=== PATIENT | female | born 1975 | race Caucasian/White ===

== ENCOUNTER 2021-12-15 16:27 | Emergency (ER) | payer BC, SELFPAY ==
[2021-12-15 16:52] VITALS: BP 152/96; PULSE 95; RESP 19; TEMP 36.5; O2SAT 97; BMI 38.0
--- NOTE | 2021-12-15 16:52 | XR_ITS ---
PROCEDURE INFORMATION: Exam: XR Left Knee Exam date and time: 12/15/2021 4:52 PM Age: 46 years old Clinical indication: Injury or trauma; Fall; Blunt trauma; Knee; Left; Additional info: Fall, anterior pain TECHNIQUE: Imaging protocol: XR Left knee. Views: 3 views. COMPARISON: No relevant prior studies available. FINDINGS: Bones/joints: No acute fracture or dislocation. Mild narrowing of the patellofemoral compartment. Mild tricompartmental joint space narrowing and marginal spurring. Normal bone mineralization. Soft tissues: Suprapatellar effusion. IMPRESSION: 1. Suprapatellar effusion. 2. Tricompartmental degenerative changes.
--- NOTE | 2021-12-15 17:06 | HMH.EDUTC ---
[facility] [place]ression: Knee effusion Qualifiers: Laterality: left Qualified Code(s): M25.462 - Effusion, left knee Disposition: Home, Self-Care Condition on Discharge: Good Instructions: How to Use a Knee Immobilizer, Ibuprofen Additional Instructions: Follow up with your Family Doctor if no improvement for further testing like Ct Scan or MRI of knee Return if needed Straight to ER if any life threatening symptoms *weight bearing as tolerated use walker to help you get around *RICE, Rest the extremity, Ice 15-20 minutes 3-4 times daily, Compress- wear the matt wrap as discussed as much as possible to help reduce swelling and pain, Elevate the extremity when at rest *Matt wrap/Knee immobilizer is for support and help control swelling, use it except in the shower. Be sure that is not to tight but not to loose either *Elevate when resting *Ibuprofen every 6-8 hours as needed for pain an inflammation. If need something more can take Tylenol in between doses of Ibuprofen to help Immediately follow up with your family doctor for new or worsening of symptoms, or no noticeable improvement over the next 3-5 days Prescriptions: Ibuprofen [Ibuprofen 800mg Tablet] 800 mg PO TIDP PRN #20 tab PRN Reason: Moderate Pain Transmission Status: Received by [id number] Referrals: Gauri Lewis [Primary Care Provider] - As needed Donald Cano MD [Staff Physician] - (call office for appointment) Time of Disposition: 17:57 Medical Decision Making - Winston Inquiry Pt receiving controlled substance: No Winston was queried for this patient: No Vital Signs: 12/15/21 16:52 12/15/21 18:10 Temperature 97.7 F 97.7 F Temperature Source Oral Pulse Rate 95 H Pulse Rate [Right Brachial] 95 H Respiratory Rate 19 19 Blood Pressure 152/96 H Blood Pressure [Right Arm] 152/96 H Blood Pressure Mean [Right Arm] 114 Blood Pressure Source [Right Arm] Automatic Cuff Blood Pressure Position [Right Arm] Sitting 02 Sat by Pulse Oximetry 97 - Radiology Data #1 Image(s): Knee Image Reviewed: Yes I have reviewed radiologist's interpretation IMPRESSION: 1. Suprapatellar effusion. 2. Tricompartmental degenerative changes. [facility] [place] - General Stated complaint: O/A 4 weeks L leg pain from fall, limited ROM Time Seen by Provider: 12/15/21 17:06 Description of Symptoms (Recalled from Triage Doc. by RN): Pt states she was walking in [employer] parking lot a month ago when she slipped and fell in the ice causing her to land on her left knee. States it had started feeling better up until last night. HEENT Symptoms (Recalled from RN notes): No Resp Symptoms (Recalled from RN notes): No Skin Symptoms (Recalled from RN notes): No MS Symptoms (Recalled from RN notes): Yes Functional Status (Recalled from RN notes): wnl - History of Present Illness Provider Complaint: Patient states that she fell on ice in the [employer] parking lot about 4-6wks ago and landed on her left knee States that it has been hurting on and off but was feeling better until last night States that she started having pain in her knee again and hurts on the side when she bends it or walks on it Denies new injury - Related Data Previous Rx's Medication Instructions Recorded Ibuprofen [Ibuprofen 800mg 800 mg PO TIDP PRN #20 tab 12/15/21 Tablet] Allergies Allergy/AdvReac Type Severity Reaction Status Date / Time SULFA (sulfonamide) Allergy Unknown Uncoded 10/09/17 14:24 - Worker's Comp Is this a Worker's Comp case?: No [facility] History - Hepatitis A Screen Drug use history?: No High risk sexual behaviors?: No History of sexually transmitted infection?: No Currently employed?: No Childcare worker?: No Do you have indoor plumbing?: Yes Do you have electricity?: Yes Attestation statement:: This patient has been screened for Hepatitis A risk factors. I have reviewed the patient's past medical history: Yes - Social
[2021-12-15 18:10] VITALS: BP 152/96; PULSE 95; RESP 19; TEMP 36.5; O2SAT 97
== END 2021-12-15 18:10 | disposition home or self-care (01) ==
PROVIDERS: Emergency Provider Nurse Practitioner; PCP Physician Assistant
DX: M25.462 Effusion, left knee (principal)
CPT/HCPCS: 73562; 99202; G0463

== ENCOUNTER → 2022-01-03 13:02 | Outpatient (CLI) | payer BC, SELFPAY ==
--- NOTE | 2022-01-03 13:10 | XR_ITS ---
FINAL REPORT CLINICAL HISTORY: 4 view wb; knee pain; obesity COMPARISON: December 15, 2021 FINDINGS: LEFT KNEE 4 weight-bearing views were obtained. There is no acute fracture or dislocation. There are mild and moderate degenerative changes which are greatest involving the patellofemoral compartment. There is mild lateral patellar subluxation. There is a partially improved joint effusion. IMPRESSION: Mild and moderate degenerative change. Mild lateral patellar subluxation. Partially improved joint effusion. Reviewed, Interpreted and Dictated by Kory Hui III, MD Transcribed by Lisa Gerber Authenticated by Kory Hui III, MD on 01/03/2022 03:22:43 PM [facility]
== END ==
PROVIDERS: PCP Nurse Practitioner Family; Visit Provider Orthopaedic Surgery
DX: M25.462 Effusion, left knee (principal)
CPT/HCPCS: 73564

== ENCOUNTER → 2022-09-19 08:38 | Outpatient (CLI) | payer BC, SELFPAY ==
--- NOTE | 2022-09-19 08:42 | XR_ITS ---
FINAL REPORT CLINICAL HISTORY: knee pain..fall in oct COMPARISON: December 2021 FINDINGS: LEFT KNEE 3 views of the left knee were obtained. There is no acute fracture or dislocation. Moderate tri-compartmental degenerative joint disease. No joint effusion. Mild lateral patellar subluxation, less pronounced. IMPRESSION: Degenerative changes. No acute bony abnormality. Reviewed, Interpreted and Dictated by Vivian Snyder MD Transcribed by Steffen Green Authenticated and [facility]
== END ==
PROVIDERS: PCP Nurse Practitioner Family; Visit Provider Physician Assistant Surgical
DX: M25.562 Pain in left knee (principal)
CPT/HCPCS: 73562

== ENCOUNTER → 2023-06-08 12:19 | Outpatient (CLI) | payer BC, SELFPAY ==
--- NOTE | 2023-06-08 12:29 | XR_ITS ---
FINAL REPORT CLINICAL HISTORY: Right great toe injury COMPARISON: None FINDINGS: RIGHT FOOT: Three views of the right foot were obtained. There is a fracture of the proximal aspect of the first distal phalanx. Fracture line extends into the interphalangeal joint. There is mild degenerative change. Mild hallux valgus deformity is noted. There is pes planus. Calcaneal spurs are noted. There are vascular calcifications. There is no acute soft tissue abnormality. IMPRESSION: First distal phalanx fracture as above. Reviewed, Interpreted and Dictated by Kory Hui III, MD Transcribed by Neena Lewis Authenticated and . [facility]
== END ==
PROVIDERS: PCP Nurse Practitioner Family; Visit Provider Podiatrist
DX: M79.671 Pain in right foot (principal)
CPT/HCPCS: 73630

== ENCOUNTER → 2023-06-15 09:41 | Outpatient (CLI) | payer BC, SELFPAY ==
--- NOTE | 2023-06-15 09:46 | US_ITS ---
FINAL REPORT CLINICAL HISTORY: Decreased Pulses in Lower extremities.DM,PAIN AT REST AND CLAUDICATION COMPARISON: None FINDINGS: ANKLE-BRACHIAL PRESSURE INDICES Pressure indices are as follows: RIGHT LOWER EXTREMITY: Ankle-brachial pressure index: 0.9 LEFT LOWER EXTREMITY: Ankle-brachial pressure index: 1.8 Noncompressible vessels bilaterally with diminished pulses. IMPRESSION: Due to lack of compressibility, values are thought to be not reliable. Reviewed, Interpreted and Dictated by Marcial Finch MD Transcribed by Neena Lewis Authenticated and [facility]
== END ==
PROVIDERS: PCP Nurse Practitioner Family; Visit Provider Nurse Practitioner Family
DX: R09.89 Other specified symptoms and signs involving the circulatory and respiratory systems (principal); I70.213 Atherosclerosis of native arteries of extremities with intermittent claudication, bilateral legs
CPT/HCPCS: 93923

== ENCOUNTER → 2023-07-04 08:11 | Outpatient (CLI) | payer BC, SELFPAY | PROVIDERS: Visit Provider Nurse Practitioner Family | DX: S91.101A Unspecified open wound of right great toe without damage to nail, initial encounter (principal); B95.2 Enterococcus as the cause of diseases classified elsewhere | CPT/HCPCS: 87070; 87077; 87186; 87205 ==